=== PATIENT | female | born 1945 | race Native Hawaiian/Other Pacific Islander ===

== ENCOUNTER 2022-04-25 07:27 | Outpatient (CLI) | payer MEDICARE, OTHER | END 2022-04-25 23:59 | disposition home or self-care (01) | LOC: LAB 07:27 | PROVIDERS: ATTEND Internal Medicine Gastroenterology | DX: Z01.812 Encounter for preprocedural laboratory examination (principal); Z20.822 Contact with and (suspected) exposure to COVID-19 ==

== ENCOUNTER → 2022-04-25 | Outpatient (CLI) | payer MEDICARE, OTHER ==
[2022-04-25 09:01] LABS: HEMATOCRIT 39.5 % (31.2-41.9); MEAN CORPUSCULAR HEMOGLOBIN 31.1 uug (24.7-32.8); MEAN CORPUSCULAR VOLUME 94.6 fL (75.5-95.3); PLATELET COUNT (AUTO) 370 K/uL (179-408)
[2022-04-25 09:02] LABS: *BILIRUBIN,URIN NEGATIVE (NEGATIVE); *BLOOD, URINE NEGATIVE (NEGATIVE); *CLARITY,URINE CLEAR (CLEAR); *COLOR,URINE YELLOW (YELLOW); *KETONES,URINE NEGATIVE (NEGATIVE); *UROBILINOGEN,URINE 0.2 E.U./dl (NORMAL); LEUKOCYTE ESTERASE ,URINE NEGATIVE (NEGATIVE); NITRITE, URINE NEGATIVE (NEGATIVE); UGLUCOSE NEGATIVE (NEGATIVE)
[2022-04-25 09:21] LABS: BILIRUBIN,TOTAL 0.5 mg/dL (0.2-1.0); CREATININE 1.3 mg/dL (0.6-1.3); POTASSIUM 4.4 mmol/L (3.5-5.1); TOTAL PROTEIN, SERUM 7.8 g/dL (6.4-8.2)
== END | disposition home or self-care (01) ==
LOC: LAB 07:47
PROVIDERS: ATTEND Internal Medicine Gastroenterology
DX: Z01.818 Encounter for other preprocedural examination (principal); M51.34 Other intervertebral disc degeneration, thoracic region
CPT/HCPCS: 36415; 71046; 85025; 85610; 85730

== ENCOUNTER 2022-04-28 05:21 | Day surgery (SDC) | payer MEDICARE, OTHER ==
[2022-04-28] MEDS ORDERED: SEVOFLURANE 250 ML BOTTLE ONE (07:04)
[2022-04-28] MEDS ORDERED: GLYCOPYRROLATE 0.2 MG/ML VIAL ONE (07:05)
[2022-04-28] MEDS ORDERED: PROPOFOL 200 MG/20 ML BOTTLE ONE (07:05)
== END 2022-04-28 09:30 | disposition home or self-care (01) ==
LOC: DS 05:21
PROVIDERS: ATTEND Internal Medicine Gastroenterology
DX: K58.1 Irritable bowel syndrome with constipation (principal); K64.8 Other hemorrhoids; K63.89 Other specified diseases of intestine; K62.1 Rectal polyp; K57.30 Diverticulosis of large intestine without perforation or abscess without bleeding; I12.9 Hypertensive chronic kidney disease with stage 1 through stage 4 chronic kidney disease, or unspecified chronic kidney disease; E11.22 Type 2 diabetes mellitus with diabetic chronic kidney disease; N18.9 Chronic kidney disease, unspecified; M19.90 Unspecified osteoarthritis, unspecified site; E78.5 Hyperlipidemia, unspecified; K21.00 Gastro-esophageal reflux disease with esophagitis, without bleeding; Z79.82 Long term (current) use of aspirin; Z79.84 Long term (current) use of oral hypoglycemic drugs; Z79.899 Other long term (current) drug therapy; Z98.890 Other specified postprocedural states; Z91.041 Radiographic dye allergy status
CPT/HCPCS: 45385; 82962; J3490; J7040; A4663